=== PATIENT | male | born 1980 | race Caucasian/White ===

== ENCOUNTER 2016-06-27 06:06 | Emergency (ER) | payer MEDICAID ==
[~2016-06-27] VITALS: Ht 175.3 cm; Wt 77.0 kg
[2016-06-27] MEDS ORDERED: BACITRACIN/POLYMYXIN B SULFATE OINT 15GM TOP ONE (06:30)
[2016-06-27] MEDS ORDERED: TETANUS, DIPHTHERIA, PERTUSSIS VAC/PF 0.5ML (>7YR OLD) IM ONE (06:30)
[2016-06-27] MEDS ORDERED: TRAMADOL 50MG TABLET PO ONE (06:30)
[2016-06-27 08:57] VITALS: BP 120/76
== END 2016-06-27 08:56 | disposition home or self-care (01) ==
LOC: ER 06:10
DX: S00.83XA Contusion of other part of head, initial encounter (principal); S40.012A Contusion of left shoulder, initial encounter; S50.12XA Contusion of left forearm, initial encounter; S80.02XA Contusion of left knee, initial encounter; S80.01XA Contusion of right knee, initial encounter; F17.210 Nicotine dependence, cigarettes, uncomplicated; E11.9 Type 2 diabetes mellitus without complications; Y04.0XXA Assault by unarmed brawl or fight, initial encounter; Y92.488 Other paved roadways as the place of occurrence of the external cause
CPT/HCPCS: 70450; 70486; 71010; 72125; 73030; 73090; 90471; 90715; 99284; Z7610

== ENCOUNTER 2018-08-24 19:47 | Emergency (ER) | payer MEDICAID ==
[~2018-08-24] VITALS: Ht 172.7 cm; Wt 97.7 kg
[2018-08-24] MEDS ORDERED: CARV3.1242 MT (20:07)
[2018-08-24] MEDS ORDERED: FLUO-124 MT (20:07)
[2018-08-24] MEDS ORDERED: GABA-531 MT (20:07)
[2018-08-24] MEDS ORDERED: LOSA25TA12 MT (20:07)
[2018-08-24] MEDS ORDERED: HUM100IN SQ (20:08)
[2018-08-24] MEDS ORDERED: GABAPENTIN 300MG CAPSULE PO ONE (21:00)
[2018-08-24 21:32] LABS: CHLORIDE 109 mEq/L (98-107)
[2018-08-24 21:33] LABS: PROTHROMBIN TIME 10.1 sec (9.6-11.0)
[2018-08-24 21:43] LABS: CLARITY URINE CLEAR (CLEAR); COLOR URINE YELLOW (YELLOW); KETONES URINE NEGATIVE (NEGATIVE); LEUKOCYTE ESTERASE URINE NEGATIVE (NEGATIVE); NITRITE URINE NEGATIVE (NEGATIVE); OCCULT BLOOD URINE NEGATIVE (NEGATIVE); PROTEIN URINE NEGATIVE (NEGATIVE); SPECIFIC GRAVITY URINE 1.006 (1.005-1.030)
[2018-08-24 21:43] LABS: BASOPHILS % 0.4 % (0.0-2.0); EOSINOPHILS % 1.4 % (0.0-5.0); HEMATOCRIT. 40.8 % (42.0-52.0); HEMOGLOBIN. 14.5 g/dL (14.0-18.0); LYMPHOCYTES % 35.3 % (20.0-50.0); MEAN CORPUSCULAR HEMOGLOBIN 31.6 pg (28.0-32.0); MEAN CORPUSCULAR VOLUME 88.8 fL (80.0-94.0); MEAN PLATELET VOLUME 8.2 fl (7.4-10.4); MONOCYTES % 9.6 % (2.0-8.0); NEUTROPHILS % 53.3 % (40.0-76.0); PLATELET 225 x1000/uL (130-400); RED CELL DISTRIBUTION WIDTH 13.5 % (11.6-14.6)
[2018-08-25] MEDS ORDERED: OXYCODONE HCL 10MG TABLET SR 12HR PO ONE (00:15)
[2018-08-25] MEDS ORDERED: CYCLOBENZAPRINE 10MG TABLET PO ONE (00:15)
[2018-08-25] MEDS ORDERED: KETOROLAC 15MG/ML VIAL IV ONE (00:15)
[2018-08-25] MEDS ORDERED: DEXAMETHASONE 10 MG/ML VIAL IV ONE (01:00)
[2018-08-25 02:57] VITALS: BP 132/66
== END 2018-08-25 03:02 | disposition home or self-care (01) ==
LOC: ER 19:47
DX: M79.602 Pain in left arm (principal); M79.601 Pain in right arm; G62.9 Polyneuropathy, unspecified; E11.9 Type 2 diabetes mellitus without complications; Z87.891 Personal history of nicotine dependence
CPT/HCPCS: 36415; 71045; 72125; 80053; 81003; 82962; 83605; 84484; 85025; 85610; 93005; 96374; 96375; 99284; J1100; J1885; Z7610

== ENCOUNTER 2023-09-25 17:54 | Emergency (ER) | payer MEDICAID ==
[~2023-09-25] VITALS: Ht 175.3 cm; Wt 86.2 kg
[~2023-09-25 17:54] MED LIST: CARV3.1242 MT; FLUO20CA39 MT; GABA-532 MT; HUM100IN SQ; LOSA25TA26 MT
[2023-09-25 18:25] VITALS: O2SAT 98
[2023-09-25 20:03] VITALS: BP 132/76; PULSE 90; RESP 16; TEMP 98
== END 2023-09-25 20:05 | disposition home or self-care (01) ==
LOC: ER 17:54
DX: M79.672 Pain in left foot (principal); M79.671 Pain in right foot; E11.9 Type 2 diabetes mellitus without complications
CPT/HCPCS: 99281